=== PATIENT | male | born 1970 | race Two or more races ===

== ENCOUNTER 2024-01-31 02:20 | Emergency (ER) | payer OTHER ==
[~2024-01-31] VITALS: Ht 172.7 cm; Wt 93.0 kg
[2024-01-31] MEDS ORDERED: HALOPERIDOL LACTATE 5 MG/ML AMPUL IM STA (03:24)
[2024-01-31] MEDS ORDERED: DIPHENHYDRAMINE HCL 50 MG/ML VIAL 1ML IM STA (03:25)
[2024-01-31] MEDS ORDERED: DEXAMETHASONE SODIUM PHOSPHATE 4 MG/ML VIAL IV STA (03:27)
== END 2024-01-31 06:17 | disposition home or self-care (01) ==
LOC: ER 02:21
DX: G43.809 Other migraine, not intractable, without status migrainosus (principal); Z88.6 Allergy status to analgesic agent